=== PATIENT | male | born 1990 | race Caucasian/White ===

== ENCOUNTER 2017-09-22 08:21 | Emergency (ER) | payer BC, SELFPAY ==
[2017-09-22] MEDS ORDERED: Amoxicillin 500 MG Cap PO ONE (08:22)
[2017-09-22] MEDS ORDERED: Clindamycin HCl 150 MG Cap PO ONE (08:22)
--- NOTE | 2017-09-22 08:28 | EDM.PDOC ---
ED HPI GENERAL MEDICAL PROBLEM - General Chief Complaint: ENT Problem Stated Complaint: TOOTH ABCESSED, [id number] Time Seen by Provider: 09/22/17 08:23 Source of Information: Reports: Patient, RN, RN Notes Reviewed History Limitations: Reports: No Limitations - History of Present Illness INITIAL COMMENTS - FREE TEXT/NARRATIVE: C/O dental pain from an abscessed tooth. The pain began 2 days ago at the Rt upper molar region. Today pt woke with the Rt face swollen. Denies fever or chills. 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 [No Known Home Meds] 09/22/17 [History] Past Medical History - Past Health History Medical/Surgical History: Denies Medical/Surgical History Endocrine/Metabolic History: Reports: Obesity/BMI 30+ Social & Family History - Family History Family Medical History: Noncontributory - Living Situation & Occupation Living situation: Reports: with Family ED ROS ENT - Review of Systems Review Of Systems: ROS reveals no pertinent complaints other than HPI. ED EXAM, ENT - Physical Exam Exam: See Below Exam Limited By: No Limitations General Appearance: Alert, WD/WN, No Apparent Distress Eye Exam: Bilateral Eye: Normal Inspection Ears: Normal External Exam, Normal Canal, Hearing Grossly Normal, Normal TMs Nose: Normal Inspection Mouth/Throat: Normal Lips, Normal Oropharynx, Dental Abcess (Rt maxillary molar) , Dental Pain, Dental Tenderness Head: Atraumatic, Normocephalic, Facial Swelling (Rt, no periorbital involvement ), Facial Tenderness (Rt) Neck: Normal Inspection, Supple, Non-Tender, Full Range of Motion Respiratory/Chest: No Respiratory Distress Neurological: Alert, Oriented, No Motor/Sensory Deficits Psychiatric: Normal Affect, Normal Mood Skin: Warm, Dry, Intact, Normal Color, No Rash Course - Vital Signs Last Recorded V/S: Last Vital Signs Temp 36.9 C 09/22/17 08:23 Pulse 82 12/25/17 08:23 Resp 18 09/22/17 08:23 BP 142/88 H 09/22/17 08:23 Pulse Ox 96 09/22/17 08:23 - Orders/Labs/Meds Orders: Active Orders 24 hr Category Date Time Status Peripheral IV Care [RC] . DIRECTED Care 09/22/17 08:34 Ordered Dexamethasone Med 09/22/17 08:34 Once 20 mg IVPUSH ONETIME ONE Lidocaine 2% [Xylocaine 2% Viscous] Med 09/22/17 08:35 Once 15 ml PO ONETIME ONE Sodium Chloride 0.9% [Saline Flush] Med 09/22/17 08:33 Ordered 10 ml FLUSH ASDIRECTED PRN Peripheral IV Insertion Adult [OM.PC] Stat Oth 09/22/17 08:33 Ordered Departure - Departure Time of Disposition: 09:30 Disposition: Home, Self-Care 01 Condition: Good Clinical Impression: Dental abscess - Discharge Information Instructions: Dental Abscess Forms: ED Department Discharge Additional Instructions: Rx: Amoxicillin 500mg Rx: Clindamycin 300mg Follow up with dentist at first available appointment. - My Orders Last 24 Hours: My Active Orders 09/22/17 08:33 Sodium Chloride 0.9% [Saline Flush] 10 ml FLUSH ASDIRECTED PRN Peripheral IV Insertion Adult [OM.PC] Stat 09/22/17 08:34 Peripheral IV Care [RC] . DIRECTED Dexamethasone 20 mg IVPUSH ONETIME ONE 09/22/17 08:35 Lidocaine 2% [Xylocaine 2% Viscous] 15 ml PO ONETIME ONE - Assessment/Plan Last 24 Hours: My Active Orders 09/22/17 08:33 Sodium Chloride 0.9% [Saline Flush] 10 ml FLUSH ASDIRECTED PRN Peripheral IV Insertion Adult [OM.PC] Stat 09/22/17 08:34 Peripheral IV Care [RC] . DIRECTED Dexamethasone 20 mg IVPUSH ONETIME ONE 09/22/17 08:35 Lidocaine 2% [Xylocaine 2% Viscous] 15 ml PO ONETIME ONE
[2017-09-22] MEDS ORDERED: Sodium Chloride 0.9% 10 ML Syringe FLUSH PRN (08:33)
[2017-09-22] MEDS ORDERED: Dexamethasone 4 MG/ML SDV IVPUSH ONE (08:34)
[2017-09-22] MEDS ORDERED: Lidocaine 2% Viscous Solution 15 ML Cup PO ONE (08:35)
[2017-09-22] MEDS ORDERED: Amoxicillin 500 MG Cap ONE (09:07)
[2017-09-22] MEDS ORDERED: Clindamycin HCl 150 MG Cap ONE (09:11)
== END 2017-09-22 09:35 | disposition home or self-care (01) ==
LOC: DL.ED 08:21
DX: K04.7 Periapical abscess without sinus (principal)
CPT/HCPCS: 96374; 99282; A9270; J1100; J7050

== ENCOUNTER 2017-09-24 02:49 | Inpatient (IN) | payer BC, OTHER ==
[2017-09-24] MEDS ORDERED: Piperacillin/Tazobactam 3.375 GM in Sodium Chloride 0.9% 100 ML IV ONE (03:04)
[2017-09-24 03:29] LABS: CHLORIDE,CL 104 mmol/L (101-111); SODIUM,NA 141 mmol/L (135-145)
[2017-09-24] MEDS ORDERED: Iopamidol 612 MG/ML 100 ML Bottle IVPUSH ONE (04:10)
--- NOTE | 2017-09-24 04:29 | EDM.PDOC ---
ED HPI GENERAL MEDICAL PROBLEM - General Chief Complaint: ENT Problem Stated Complaint: ABCESSED TOOTH, FACE SWOLLEN [id number] Time Seen by Provider: 09/24/17 03:00 Source of Information: Reports: Patient History Limitations: Reports: No Limitations - History of Present Illness INITIAL COMMENTS - FREE TEXT/NARRATIVE: ED with c/o increased swelling of face up into eye. Patient was seen on 09/22 with dental abscess starting on 09/21. Initiated on amoxicillin and clindamycin. No known fevers. Patient states feels like something is draining as has bad taste in mouth today. - Related Data Allergies Allergy/AdvReac Type Severity Reaction Status Date / Time No Known Allergies Allergy Verified 09/22/17 08:29 Home Meds: Home Meds Amoxicillin 500 mg PO DAILY 09/24/17 [History] Clindamycin HCl 300 mg PO DAILY 09/24/17 [History] Past Medical History - Past Health History Medical/Surgical History: Denies Medical/Surgical History Endocrine/Metabolic History: Reports: Obesity/BMI 30+ Social & Family History - Family History Family Medical History: Noncontributory - Tobacco Use Smoking Status *Q: Never Smoker Second Hand Smoke Exposure: No - Caffeine Use Caffeine Use: Reports: None - Recreational Drug Use Recreational Drug Use: No - Living Situation & Occupation Living situation: Reports: with Family ED ROS ENT - Review of Systems Review Of Systems: See Below Constitutional: Reports: No Symptoms HEENT: Reports: Dental Pain Respiratory: Reports: No Symptoms Cardiovascular: Reports: No Symptoms Skin: Reports: Erythema, Other (facial swelling) Neurological: Reports: No Symptoms ED EXAM, ENT - Physical Exam Exam: See Below Exam Limited By: No Limitations General Appearance: Alert, Mild Distress Eye Exam: Right Eye: Periorbital Changes (swelling), Bilateral Eye: EOMI Ears: Normal External Exam, Normal TMs Nose: Normal Inspection Mouth/Throat: Dental Abcess, Dental Tenderness Head: Facial Swelling (right moderate swelling extending to lower eyelid, minimal swelling to upper lid. Gum swollen lateral edge posterior mollar) Course - Vital Signs Last Recorded V/S: Last Vital Signs Temp 98.0 F 09/24/17 02:58 Pulse 98 09/24/17 02:58 Resp 16 09/24/17 02:58 BP 144/89 H 09/24/17 02:58 Pulse Ox 98 09/24/17 02:58 - Orders/Labs/Meds Orders: Active Orders 24 hr Category Date Time Status CULTURE BLOOD [BC] Stat Lab 09/24/17 03:02 Received Sodium Chloride 0.9% [Normal Saline] 1,000 ml Med 09/24/17 05:10 Active IV .BOLUS Vancomycin [Vancocin] 1 gm Med 09/24/17 05:09 Active Sodium Chloride 0.9% [Normal Saline] 250 ml IV ONETIME Medication Orders Vancomycin HCl 1 gm/ Sodium (Chloride) 250 mls @ 167 mls/hr IV ONETIME ONE Stop: 09/24/17 06:38 Last Admin: 09/24/17 05:22 Dose: 167 mls/hr Sodium Chloride (Normal Saline) 1,000 mls @ 500 mls/hr IV .BOLUS ONE Stop: 09/24/17 07:09 Last Admin: 09/24/17 05:16 Dose: 500 mls/hr Labs: Laboratory Tests 09/24/17 09/24/17 09/24/17 Range/Units 03:02 03:02 03:02 WBC 12.3 H (5.0-10.0) 10^3/uL RBC 4.46 L (4.6-6.2) 10^6/uL Hgb 12.8 L (14.0-18.0) g/dL Hct 40.0 (40.0-54.0) % MCV 89.7 (80-100) fL MCH 28.7 (27.0-34.0) pg MCHC 32.0 L (33.0-35.0) g/dL Plt Count 259 (150-450) 10^3/uL Neut % (Auto) 65.7 (42.2-75.2) % Lymph % (Auto) 22.3 (20.5-50.1) % [place] % (Auto) 11.2 H (2-8) % Eos % (Auto) 0.6 L (1.0-3.0) % Baso % (Auto) 0.2 (0.0-1.0) % Sodium 141 (135-145) mmol/L Potassium 3.5 L (3.6-5.0) mmol/L Chloride 104 (101-111) mmol/L Carbon Dioxide 30.0 (21.0-31.0) mmol/L Anion Gap 10.5 BUN 22 H (7-18) mg/dL Creatinine 1.0 (0.6-1.3) mg/dL Est Cr Clr Drug Dosing TNP Estimated GFR (MDRD) > 60 BUN/Creatinine Ratio 22.00 Glucose 95 (74-105) mg/dL Lactic Acid 1.5 (0.5-2.2) mmol/L Calcium 8.5 (8.4-10.2) mg/dl Total Bilirubin 0.5 (0.2-1.0) mg/dL AST 26 (10-42) IU/L ALT 40 (10-60) IU/L Alkaline Phosphatase 66 (42-121) IU/L C-Reactive Protein (0.0-1.3) mg/dL Total Protein 7.1 (6.7-8.2) g/dl Albumin 4.1 (3.2-5.5) g/dl Globulin 3.0 Albumin/Globulin Ratio 1.37 // Range/Units 03:02 WBC (5.0-10.0) 10^3/uL RBC (4.6-6.2) 10^6/uL Hgb (14.0-18.0) g/dL Hct (40.0-54.0) % MCV (80-100) fL MCH (27.0-34.0) pg MCHC (33.0-35.0) g/dL Plt Count (150-450) 10^3/uL Neut % (Auto) (42.2-75.2) % Lymph % (Auto) (20.5-50.1) % [place] % (Auto) (2-8) % Eos % (Auto) (1.0-3.0) % Baso % (Auto) (0.0-1.0) % Sodium (135-145) mmol/L Potassium (3.6-5.0) mmol/L Chloride (101-111) mmol/L Carbon Dioxide (21.0-31.0) mmol/L Anion Gap BUN (7-18) mg/dL Creatinine (0.6-1.3) mg/dL Est Cr Clr Drug Dosing Estimated GFR (MDRD) BUN/Creatinine Ratio Glucose (74-105) mg/dL Lactic Acid (0.5-2.2) mmol/L Calcium (8.4-10.2) mg/dl Total Bilirubin (0.2-1.0) mg/dL AST (10-42) IU/L ALT (10-60) IU/L Alkaline Phosphatase (42-121) IU/L C-Reactive Protein 1.6 H (0.0-1.3) mg/dL Total Protein (6.7-8.2) g/dl Albumin (3.2-5.5) g/dl Globulin Albumin/Globulin Ratio Meds: Medications Generic Name Dose Route Start Last Admin Trade Name Freq PRN Reason Stop Dose Admin Vancomycin HCl 1 gm/ Sodium 250 mls @ 167 mls/hr 09/24/17 05:09 09/24/17 05: 22 Chloride IV 09/24/17 06:38 167 mls/hr ONETIME ONE Administration Sodium Chloride 1,000 mls @ 500 mls/hr 09/24/17 05:10 09/24/17 05:16 Normal Saline IV 09/24/17 07:09 500 mls/hr .BOLUS ONE Administration Discontinued Medications Generic Name Dose Route Start Last Admin Trade Name Freq PRN Reason Stop Dose Admin Diphenhydramine HCl 25 mg 09/24/17 05:09 09/24/17 05:21 Benadryl IVPUSH 09/24/17 05:10 25 mg ONETIME ONE Administration Piperacillin Sod/Tazobactam 100 mls @ 200 mls/hr 09/24/17 03:04 09/24/17 03: 13 Sod 3.375 gm/ Sodium Chloride IV 09/24/17 03:33 200 mls/hr ONETIME ONE Administration Iopamidol 100 ml 09/24/17 04:10 09/24/17 04:10 Isovue-300 (61%) IVPUSH 09/24/17 04:11 100 ml ONETIME ONE Administration Vancomycin HCl Confirm 09/24/17 05:17 09/24/17 05:25 Vancomycin Administered 09/24/17 05:18 Not Given Dose 1 gm .ROUTE .STK-MED ONE - Radiology Interpretation Free Text/Narrative:: CT maxillofacial w/contrast: Extensive right facial cellulitis overlying the maxillary, zygomatic and periorbital region, developing periodontal abscess adjacent to the alveolar process of the maixilla on the right - Re-Assessments/Exams Free Text/Narrative Re-Assessment/Exam: Right sided increase in facial swelling from ED presentation. Ice arti to are with simld decrease in swelling in orbital region. DR Patino accepting of patient for further evaluation and management of right facial cellulitis secondary to dental abscess. Departure - Departure Time of Disposition: 05:39 Disposition: Admitted As Inpatient 64 Condition: Undetermined Clinical Impression: Facial cellulitis, Abscess, dental - Discharge Information Forms: ED Department Discharge - My Orders Last 24 Hours: My Active Orders 09/24/17 03:02 CULTURE BLOOD [BC] Stat 09/24/17 05:09 Vancomycin [Vancocin] 1 gm Sodium Chloride 0.9% [Normal Saline] 250 ml IV ONETIME 09/24/17 05:10 Sodium Chloride 0.9% [Normal Saline] 1,000 ml IV .BOLUS - Assessment/Plan Last 24 Hours: My Active Orders 09/24/17 03:02 CULTURE BLOOD [BC] Stat 09/24/17 05:09 Vancomycin [Vancocin] 1 gm Sodium Chloride 0.9% [Normal Saline] 250 ml IV ONETIME 09/24/17 05:10 Sodium Chloride 0.9% [Normal Saline] 1,000 ml IV .BOLUS
[2017-09-24] MEDS ORDERED: diphenhydrAMINE 50 MG/ML SDV IVPUSH ONE (05:09)
[2017-09-24] MEDS ORDERED: Sodium Chloride 0.9% 1,000 ML IV ONE (05:10)
[2017-09-24] MEDS ORDERED: Vancomycin 1 GM SDV ONE (05:17)
[2017-09-24] MEDS: Sodium Chloride 0.9% 1,000 ML IV SCH ×2 (07:25→11:53)
[2017-09-24] MEDS: Ibuprofen 600 MG Tab PO PRN ×2 (09:59→18:01)
[2017-09-24] MEDS: Vancomycin 1.5 GM in Sodium Chloride 0.9% 500 ML IV SCH ×2 (13:05→20:58)
--- NOTE | 2017-09-24 13:43 | HP ---
HISTORY OF PRESENT ILLNESS: Mr. Mckeon is a 27-year-old male being admitted because of facial cellulitis. After started around 3 days prior to this visit when the right side of the face started to swell up, redness, and some pain, went to the emergency, was prescribed with amoxicillin and clindamycin. Symptoms became worse the next day and then again on day of admission. The patient denies prior history of any skin infection or MRSA. No sick contacts in the household or at work. No fever or chills. No headache, blurring of vision, or pain on eye movement. No neck stiffness, difficulty swallowing, redness, or any signs of congestion. PAST MEDICAL HISTORY: Unremarkable. MEDICATIONS: Reviewed. ALLERGIES: Reviewed. OBJECTIVE: Vital Signs: Blood pressure 131/70, heart rate of 70 beats per minute, respirations 20 breaths per minute, oxygen saturation 100%, temperature is 97.7. General Appearance: Awake, in distress. Chest: Symmetric chest expansion. Lungs: Bilateral air entry. CVS: Regular rate and rhythm. Abdomen: Soft. Normoactive bowel sounds. Extremities: No edema. Good pulses. SKIN: An area of swelling on the right side of the face with associated redness. NEUROLOGIC: Awake and oriented x3. Cranial nerves grossly intact. No neck stiffness. LABS: reviewed. ASSESSMENT AND PLAN: The patient has failed outpatient antibiotic. We will do IV vancomycin Pharmacy to dose and IV Zosyn. WBC mildly elevated, we will follow up on this, as well as CRP. IV fluids to be started 125 mL/hour. Santo the areas and elevate head of bed. We will continue to follow the patient in the medical surgical bed. Code status: full code. [facility] /[id number] MTDD
[2017-09-24] MEDS: Piperacillin/Tazobactam 3.375 GM in Sodium Chloride 0.9% 100 ML IV SCH (18:02)
[2017-09-25] MEDS: Piperacillin/Tazobactam 3.375 GM in Sodium Chloride 0.9% 100 ML IV SCH ×3 (00:04→12:01)
[2017-09-25] MEDS: Sodium Chloride 0.9% 1,000 ML IV SCH (01:29)
[2017-09-25] MEDS: Vancomycin 1.5 GM in Sodium Chloride 0.9% 500 ML IV SCH ×2 (05:00→12:53)
[2017-09-25] MEDS: Ibuprofen 600 MG Tab PO PRN (09:21)
[2017-09-25] MEDS ORDERED: FLU VAC QS 17-18(4YR UP)CEL/PF 60 MCG/0.5 ML Syringe IM ONE (12:16)
--- NOTE | 2017-10-20 07:14 | DISCH ---
FINAL DIAGNOSIS: Facial cellulitis. BRIEF HISTORY AND PHYSICAL EXAM: The patient is a 27-year-old male admitted because of facial cellulitis. Initially seen in the emergency room. Discharged on amoxicillin and clindamycin. Actually, this started 3 days prior to this visit. However, no improvement from the outpatient medication. Actually noticed worsening. Hence admitted. Denies any history of MRSA. PHYSICAL EXAMINATION: Vital Signs: On admission, blood pressure 131/70, heart rate 70 beats per minute, respirations 20 breaths per minute, oxygen saturation 100%. HEENT: Area of swelling on the right side of the face with associated redness. No focal deficits. LABORATORY DATA: Workup done in the hospital showed initial WBC of 12.3, hemoglobin 12.8, platelets 259. Potassium 3.5, CRP 1.6. Microbiologic study showed no growth on final blood culture. CT scan of the maxillofacial sinuses showed extensive right facial cellulitis overlying the maxilla, zygomatic, and periorbital region and maybe developing periodontal abscess adjacent to the alveolar process of the maxilla on the right. Prominent lymph nodes noted bilaterally. HOSPITAL COURSE: The patient was admitted under medical-surgical bed. Due to failure of outpatient amoxicillin and clindamycin was started on IV Zosyn and vancomycin. Hydrated with IV fluids, 125 mL/h. Areas were marked and elevate head of bed. Subsequently noticed significant improvement. The patient remains hemodynamically stable during his stay. Discharged the next day. Vital signs on discharge; blood pressure 137/93, heart rate of 80 beats per minute, respirations 20 breaths per minute, oxygen saturation 99%, temperature 97.4. DISCHARGE INSTRUCTIONS: The patient is stable to be discharged home. The patient to continue antibiotic use and monitor intolerance. Drink plenty of water. Follow up next week. Establish with a primary care provider. To come back to the emergency room if with emergent health concerns. [facility] /[id number] JOSEP
== END 2017-09-25 14:45 | disposition home or self-care (01) | DRG 383 ==
LOC: DL.ED 02:49 → UNDOADMIN 05:42 → DL.MS 05:42
PROVIDERS: ADMIT Internal Medicine; ATTEND Internal Medicine
DX: L03.211 Cellulitis of face (principal); K04.7 Periapical abscess without sinus
CPT/HCPCS: 36415; 70487; 80053; 80202; 83605; 85025; 86140; 87040; 90674; 96365; 96367; 96375; 99284; A9270-GY; J1200; J2543; J3370; J7030; J7040; J7050; Q9967

== ENCOUNTER 2020-05-27 18:18 | Emergency (ER) | payer BC, SELFPAY ==
--- NOTE | 2020-05-27 18:42 | EDM.PDOC ---
ED HPI GENERAL MEDICAL PROBLEM - General Chief Complaint: Skin Complaint Stated Complaint: POSSIBLE BLOOD CLOT Time Seen by Provider: 05/27/20 18:38 Source of Information: Reports: Patient History Limitations: Reports: No Limitations - History of Present Illness INITIAL COMMENTS - FREE TEXT/NARRATIVE: noticed large red area on left calf today, denies itch denies injury. worried DVT Left Lower Leg Pain Score (Numeric/FACES): 2 - Related Data Allergies Allergy/AdvReac Type Severity Reaction Status Date / Time No Known Allergies Allergy Verified 05/27/20 18:36 Home Meds: Home Meds . [No Known Home Meds] 05/27/20 [History] Past Medical History - Past Health History Medical/Surgical History: Denies Medical/Surgical History HEENT History: Reports: Impaired Vision Endocrine/Metabolic History: Reports: Obesity/BMI 30+ - Infectious Disease History Infectious Disease History: Reports: Chicken Pox Social & Family History - Family History Family Medical History: Noncontributory Cardiac: Reports: Hypertension, OR Endocrine/Metabolic: Reports: Diabetes, type II - Caffeine Use Caffeine Use: Reports: Soda - Living Situation & Occupation Living situation: Reports: with Family ED ROS GENERAL - Review of Systems Review Of Systems: Comprehensive ROS is negative, except as noted in HPI. ED EXAM, SKIN/RASH Exam: See Below Exam Limited By: No Limitations General Appearance: Alert, WD/WN, Mild Distress, Other (discomfort) Ears: Hearing Grossly Normal Throat/Mouth: Normal Voice, No Airway Compromise Head: Atraumatic Neck: Non-Tender, Full Range of Motion Respiratory/Chest: No Respiratory Distress Cardiovascular: Regular Rate, Rhythm GI/Abdominal: Soft, Non-Tender Extremities: Other (left calf red swollen warm) Neurological: Alert, Oriented, Normal Gait, No Motor/Sensory Deficits, Inattentive Psychiatric: Normal Affect, Normal Mood Skin: Warm, Dry, Normal Color Location, Skin: Lower Extremity, Left Characteristics: Erythematous Associated features: Warmth, Tenderness, Inflammation. No: Lymphangitis, Blanche ting, Weeping Lymphatic: No Adenopathy Course - Vital Signs Last Recorded V/S: Last Vital Signs Temp 36.8 C 05/27/20 18:25 Pulse 110 H 05/27/20 18:25 Resp 16 05/27/20 18:25 BP 137/87 05/27/20 18:25 Pulse Ox 98 05/27/20 18:25 - Orders/Labs/Meds Orders: Active Orders 24 hr Category Date Time Status CULTURE BLOOD [BC] Stat Lab 05/27/20 18:59 Received Labs: Laboratory Tests 05/27/20 05/27/20 05/27/20 Range/Units 18:59 18:59 18:59 WBC 7.8 (5.0-10.0) 10^3/uL RBC 4.22 L (4.6-6.2) 10^6/uL Hgb 12.0 L (14.0-18.0) g/dL Hct 36.8 L (40.0-54.0) % MCV 87.2 (80-100) fL MCH 28.4 (27.0-34.0) pg MCHC 32.6 L (33.0-35.0) g/dL Plt Count 186 (150-450) 10^3/uL Neut % (Auto) 73.5 (42.2-75.2) % Lymph % (Auto) 15.0 L (20.5-50.1) % [place] % (Auto) 10.4 H (2-8) % Eos % (Auto) 0.8 L (1.0-3.0) % Baso % (Auto) 0.3 (0.0-1.0) % Sodium 140 (136-145) mmol/L Potassium 3.3 L (3.5-5.1) mmol/L Chloride 101 (98-107) mmol/L Carbon Dioxide 31 (21-32) mmol/L Anion Gap 11.3 (7-13) mEq/L BUN 17 (7-18) mg/dL Creatinine 1.13 (0.70-1.30) mg/dL Est Cr Clr Drug Dosing 96.90 mL/min Estimated GFR (MDRD) > 60 BUN/Creatinine Ratio 15.0 (No establ ref range) Glucose 142 H (74-99) mg/dL Lactic Acid 0.9 (0.4-2.0) mmol/L Calcium 7.9 L (8.5-10.1) mg/dL Total Bilirubin 0.6 (0.2-1.0) mg/dL AST 27 (15-37) U/L ALT 47 (16-63) U/L Alkaline Phosphatase 68 (46-116) U/L Total Protein 7.1 (6.4-8.2) g/dL Albumin 3.6 (3.4-5.0) g/dL Globulin 3.5 Albumin/Globulin Ratio 1.0 Meds: Medications Discontinued Medications Generic Name Dose Route Start Last Admin Trade Name Cora PRN Reason Stop Dose Admin Clindamycin HCl 300 mg 05/27/20 19:35 Cleocin PO 05/27/20 19:36 ONETIME ONE - Re-Assessments/Exams Free Text/Narrative Re-Assessment/Exam: 05/27/20 20:07 results discussed with pt. Departure - Departure Time of Disposition: 20:07 Disposition: Home, Self-Care 01 Condition: Good Clinical Impression: Cellulitis Qualifiers: Site of cellulitis: extremity Site of cellulitis of extremity: lower extremity Laterality: left Qualified Code(s): L03.116 - Cellulitis of left lower limb - Discharge Information Instructions: Cellulitis, Adult, [id number] Forms: ED Department Discharge Additional Instructions: 1) elevate leg as much as possible next 48 hours 2) follow up at clinic rx given; clindamycin 300mg qid x 40 Sepsis Event Note (ED) - Evaluation Sepsis Screening Result: No Definite Risk - Focused Exam Vital Signs: Vital Signs Temp Pulse Resp BP Pulse Ox 05/27/20 18:25 36.8 C 110 H 16 137/87 98 - My Orders Last 24 Hours: My Active Orders 05/27/20 18:59 CULTURE BLOOD [BC] Stat - Assessment/Plan Last 24 Hours: My Active Orders 05/27/20 18:59 CULTURE BLOOD [BC] Stat
[2020-05-27 19:29] LABS: ANION GAP 11.3 mEq/L (7-13); CHLORIDE,CL 101 mmol/L (98-107); SODIUM,NA 140 mmol/L (136-145)
[2020-05-27] MEDS ORDERED: Clindamycin HCl 150 MG Cap PO ONE (19:35)
--- NOTE | 2020-05-27 19:48 | US ---
PROCEDURE INFORMATION: Exam: US Duplex Left Lower Extremity Veins, Limited Exam date and time: 05/27/2020 7:03 PM Age: 30 years old Clinical indication: Other: Redness, swelling; Additional info: Redness swelling TECHNIQUE: Imaging protocol: Real-time Duplex ultrasound of the Left Lower Extremity with 2-D green scale, color Doppler flow and spectral waveform analysis with image documentation. Limited exam focused on the left lower extremity veins. COMPARISON: No relevant prior studies available. FINDINGS: Left deep veins: Unremarkable. The common femoral, femoral, proximal profunda femoral and popliteal veins are patent without thrombus. Normal Doppler waveforms. Normal compressibility and/or augmentation response. Left superficial veins: Unremarkable. Saphenofemoral junction is patent without thrombus. Soft tissues: Left inguinal lymph nodes measuring 2.2 and 1.8 cm. . IMPRESSION: 1. No evidence of deep vein thrombosis. 2. Left inguinal lymph nodes enlarged at 2.2 and 1.8 cm.
== END 2020-05-27 20:12 | disposition home or self-care (01) ==
LOC: DL.ED 18:18
DX: L03.116 Cellulitis of left lower limb (principal); E66.9 Obesity, unspecified; Z68.43 Body mass index [BMI] 50.0-59.9, adult
CPT/HCPCS: 36415; 80053; 83605; 85025; 87040; 93971; 99283; A9270; 99282

== ENCOUNTER 2024-04-18 10:31 | Emergency (ER) | payer BC, OTHER ==
[2024-04-18] MEDS: Diphtheria,Pertussis(Acell),Tetanus Vaccine 0.5 ML Syringe IM ONE (11:20)
[2024-04-18] MEDS: ceFAZolin 2 GM Vial IVPUSH ONE (11:22)
[2024-04-18] MEDS: Lidocaine 2% with EPINEPHrine 1:200,000 20 ML SDV INJECT ONE (11:26)
[2024-04-18 12:12] LABS: HEMATOCRIT 40.7 % (40.0-54.0); HEMOGLOBIN 13.4 g/dL (14.0-18.0); MEAN CORPUSCULAR HEMOGLOBIN 29.5 pg (27.0-34.0); MEAN CORPUSCULAR HGB CONC 32.9 g/dL (33.0-35.0); MEAN CORPUSCULAR VOLUME 89.5 fL (80-100); PLATELET COUNT,PLT 240 10^3/uL (150-450); RED BLOOD CELL COUNT 4.55 10^6/uL (4.6-6.2); WHITE BLOOD CELL COUNT,WBC 7.6 10^3/uL (5.0-10.0)
[2024-04-18 12:14] LABS: BASOPHILS PERCENT AUTO 0.3 % (0.0-1.0); EOSINOPHILS PERCENT AUTO 1.5 % (1.0-3.0); LYMPHOCYTES PERCENT AUTO 18.8 % (20.5-50.1); NEUTROPHILS PERCENT AUTO 72.4 % (42.2-75.2)
[2024-04-18 12:33] LABS: ALBUMIN 3.9 g/dL (3.4-5.0); ANION GAP 11.9 mEq/L (7-13); BILIRUBIN TOTAL 0.3 mg/dL (0.2-1.0); BUN/CREATININE RATIO 10.8 (No establ ref range); CREATININE 1.02 mg/dL (0.70-1.30); EST CRCL DRUG DOSING (CG) 103.38 mL/min; POTASSIUM,K 3.9 mmol/L (3.5-5.1); PROTEIN TOTAL,TP 7.7 g/dL (6.4-8.2)
[2024-04-18 12:34] LABS: INR 1.1 (0.9-1.2)
[2024-04-18 12:40] LABS: EOSINOPHILS PERCENT MAN 1 % (1-3); LYMPHOCYTES PERCENT MAN 20 % (20-50); MONOCYTES PERCENT MAN 8 % (2-8); SEG NEUTROPHILS PERCENT MAN 71 % (42-75)
== END 2024-04-18 12:50 | disposition home or self-care (01) ==
LOC: DL.ED 10:31
DX: S61.412A Laceration without foreign body of left hand, initial encounter (principal); E66.9 Obesity, unspecified; Z68.43 Body mass index [BMI] 50.0-59.9, adult; W26.0XXA Contact with knife, initial encounter
CPT/HCPCS: 12001; 36415; 73130; 80053; 85025; 85610; 90471; 90715; 96374; 99283; J0690; J3490